=== PATIENT | male | born 1990 | race Caucasian/White ===

== ENCOUNTER 2018-02-07 19:39 | Emergency (ER) | payer MEDICAID ==
[~2018-02-07] VITALS: Ht 170.2 cm; Wt 72.6 kg
[2018-02-07 19:52] VITALS: BP_SYST 132
--- NOTE | 2018-02-07 20:12 | NUR ---
Patient to [facility] for evaluation. Side rails up. Report given to CB [place].
--- NOTE | 2018-02-07 20:15 | NUR ---
ER IN [facility] / [facility] examining patient.
--- NOTE | 2018-02-07 20:20 | NUR ---
Patient to ER via triage with c/o left foot pain since 01/29/18. Patient denies any known trauma or injury, patient able to ambulate to hallway bed with slow, steady gait in no acute distress. Patient also reports that it hurts to walk. Patient is awake, alert and oriented in no acute distress, vital signs stable, respirations even and unlabored, skin warm and dry to touch. Patient with very dirty feet. Patient has been seen and evaluated by Dr Patino, will continue to observe and assess.
--- NOTE | 2018-02-07 20:25 | NUR ---
Patient provided with warm betadine solution to soak/clean feet with. Patient also provided with washcloths/towels. Patient soaking/cleaning his feet.
[2018-02-07 21:11] VITALS: BP_SYST 132
--- NOTE | 2018-02-07 21:11 | NUR ---
Patient given written and verbal discharge instructions and verbalizes understanding. ER MD MONTEIRO discussed with patient the results and treatment provided. Patient in stable condition. ID arm band removed. Rx of SPECTAZOLE given. Patient educated on pain management and to follow up with PMD. Pain Scale 2/10. Opportunity for questions provided and answered. Medication side effect fact sheet provided.
== END 2018-02-07 21:11 | disposition home or self-care (01) ==
LOC: SED 19:39
DX: F15.10 Other stimulant abuse, uncomplicated (principal); Z59.0 Homelessness
CPT/HCPCS: 99283

== ENCOUNTER 2018-03-19 21:48 | Emergency (ER) | payer MEDICAID ==
[~2018-03-19] VITALS: Ht 167.6 cm; Wt 68.0 kg
[2018-03-19 21:53] VITALS: BP_SYST 180
[2018-03-19] MEDS ORDERED: ONDANSETRON 4 MG ODT TAB PO ONE (22:30)
[2018-03-19] MEDS ORDERED: IBUPROFEN 800 MG TABLET PO ONE (22:30)
[2018-03-20 06:20] VITALS: BP_SYST 144
== END 2018-03-20 06:20 | disposition home or self-care (01) ==
LOC: SED 21:48
DX: R51 Headache (principal); F15.90 Other stimulant use, unspecified, uncomplicated; I10 Essential (primary) hypertension
CPT/HCPCS: 99283; Q0162

== ENCOUNTER 2018-11-21 09:50 | Emergency (ER) | payer MEDICAID ==
[~2018-11-21] VITALS: Ht 167.6 cm; Wt 72.6 kg
[2018-11-21 09:55] VITALS: BP_SYST 162
[2018-11-21 10:54] VITALS: BP_SYST 162
== END 2018-11-21 10:54 ==
LOC: SED 09:50
DX: S61.411A Laceration without foreign body of right hand, initial encounter (principal); R03.0 Elevated blood-pressure reading, without diagnosis of hypertension; X58.XXXD Exposure to other specified factors, subsequent encounter
CPT/HCPCS: 99283

== ENCOUNTER 2019-03-07 17:07 | Emergency (ER) | payer MEDICAID ==
[~2019-03-07] VITALS: Ht 170.2 cm; Wt 65.8 kg
[2019-03-07 17:18] VITALS: BP_SYST 126
[2019-03-07] MEDS ORDERED: SULFAMETHOXAZOLE/TRIMETHOPR DS 1 TABLET PO ONE (18:45)
[2019-03-07] MEDS ORDERED: IBUPROFEN 800 MG TABLET PO ONE (18:45)
[2019-03-07 20:55] VITALS: BP_SYST 122
== END 2019-03-07 20:55 | disposition home or self-care (01) ==
LOC: SED 17:07
DX: Z48.01 Encounter for change or removal of surgical wound dressing (principal)
CPT/HCPCS: 99283

== ENCOUNTER 2023-01-14 11:09 | Emergency (ER) | payer MEDICAID ==
[~2023-01-14] VITALS: Ht 170.2 cm; Wt 68.0 kg
[2023-01-14 11:10] VITALS: BP_SYST 112; PULSE 83; RESP 17; TEMP 98.5; O2SAT 96
--- NOTE | 2023-01-14 11:10 | NUR ---
PT BROUGHT IN BY [facility], TRIAGED. AND PLACED IN HALLWAY BED. WILL ASSUME CARE
--- NOTE | 2023-01-14 11:17 | NUR ---
PT STATES HE IS HOMELESS AND IS A [facility] ADDICT. PT STATES HE USED [facility] 1 HOUR PRIOR TO CALLING 911 FOR INCREASED BREATHING. SPEAKING FULL SENTENCES, NO DISTRESS
--- NOTE | 2023-01-14 11:18 | NUR ---
DR CARD AT BEDSIDE FOR EVALUATION
--- NOTE | 2023-01-14 11:28 | NUR ---
Patient given written and verbal discharge instructions and verbalizes understanding. ER MD discussed with patient the results and treatment provided. Patient in stable condition. ID arm band removed. Rx of NONE given. Patient educated on pain management and to follow up with PMD. Pain Scale 0/10. Opportunity for questions provided and answered. Medication side effect fact sheet provided.
== END 2023-01-14 11:28 | disposition home or self-care (01) ==
LOC: SED 11:09
DX: Z00.00 Encounter for general adult medical examination without abnormal findings (principal); F11.90 Opioid use, unspecified, uncomplicated; R06.82 Tachypnea, not elsewhere classified; Z79.899 Other long term (current) drug therapy
CPT/HCPCS: 99283

== ENCOUNTER 2023-12-28 00:40 | Emergency (ER) | payer MEDICAID, OTHER ==
[~2023-12-28] VITALS: Ht 170.2 cm; Wt 68.0 kg
[2023-12-28 01:08] VITALS: BP_SYST 123; PULSE 89; RESP 18; TEMP 98.3; O2SAT 99
[2023-12-28] MEDS ORDERED: CEPH-548 PO (01:10)
[2023-12-28] MEDS ORDERED: MUPI15CR12 TP (01:10)
[2023-12-28 01:27] VITALS: BP_SYST 123; PULSE 89; RESP 18; TEMP 98.3; O2SAT 99
[2023-12-28] MEDS: KETOROLAC TROMETHAMINE 30 MG VIAL IM ONE (01:33)
== END 2023-12-28 01:27 | disposition home or self-care (01) ==
LOC: SED 00:40
DX: S01.531A Puncture wound without foreign body of lip, initial encounter (principal); K13.0 Diseases of lips; Z79.899 Other long term (current) drug therapy; Z79.2 Long term (current) use of antibiotics; X58.XXXA Exposure to other specified factors, initial encounter; Y93.89 Activity, other specified; Y92.89 Other specified places as the place of occurrence of the external cause; Y99.8 Other external cause status
CPT/HCPCS: 99283